=== PATIENT | female | born 1980 | race Caucasian/White ===

== ENCOUNTER 2016-08-11 06:01 | Day surgery (SDC) | payer MEDICAID ==
[~2016-08-11] VITALS: Ht 172.7 cm; Wt 109.1 kg
[~2016-08-11 06:01] MED LIST: ALBUTEROL SULFATE 2.5 MG/0.5 ML NEB SOLUTION NEB ONE; AZEL23SP NASAL; BENZOCAINE 20% 50 MCG/SPRAY 57 GM TP ONE; IPRA3AMP4 NEB; IPRA4AER IH; LIDOCAINE HCL 2% 30 ML JELLY TP ONE; LIDOCAINE HCL 4% 50 ML SOLUTION TP ONE; LORA10TA7 PO; MOME13HF IH; MONT10TA21 PO; OMEP20 PO; PRED10 PO; TRAZ-144 PO
[2016-08-11] MEDS ORDERED: SODIUM CHLORIDE 0.9% 1,000 ML IV ONE ×2 (06:30→06:40)
[2016-08-11] MEDS ORDERED: MIDAZOLAM HCL 2 MG/2 ML VIAL ONE (07:52)
[2016-08-11] MEDS ORDERED: FentaNYL CITRATE-PF 100 MCG/2 ML VIAL ONE (07:52)
[2016-08-11] MEDS ORDERED: MethylPREDNISolone SOD SUCC 125 MG/2 ML VIAL IVP ONE (08:45)
[2016-08-11] MEDS ORDERED: MethylPREDNISolone SOD SUCC 125 MG/2 ML VIAL ONE (08:57)
[2016-08-11] MEDS ORDERED: OXYGEN THERAPY IH SCH (20:00)
== END 2016-08-11 10:15 | disposition home or self-care (01) ==
LOC: SURGERY 06:01
PROVIDERS: ATTEND Internal Medicine Critical Care Medicine
DX: J38.4 Edema of larynx (principal); K21.9 Gastro-esophageal reflux disease without esophagitis
CPT/HCPCS: 31623; 31624; 71010; 84703; 87015 ×2; 87070; 87101; 87205; 87220; 88312; J2250; J2930; J3010; J7030